=== PATIENT | male | born 1975 | race Caucasian/White ===

== ENCOUNTER 2022-04-05 06:28 | Inpatient (IN) | payer BC ==
[2022-03-27 16:46] LABS: BASOPHILS % (AUTO) 0.9 % (0-1); EOSINOPHILS % (AUTO) 0.9 % (0-6); LYMPHOCYTES # (AUTO) 1.4 X10'3 (1.1-4.8); LYMPHOCYTES % (AUTO) 25.3 % (21-51); MEAN CORPUSCULAR HEMOGLOBIN 31.1 PG (27.0-31.0); MEAN CORPUSCULAR VOLUME 91.3 FL (78-98); MEAN PLATELET VOLUME 7.8 FL (7.4-10.4); MONOCYTES # (AUTO) 0.5 X10'3 (0-0.9); NEUTROPHILS # (AUTO) 3.4 X10'3 (1.8-7.7); NEUTROPHILS % (AUTO) 62.9 % (42-75); PRE OP HEMATOCRIT 42.1 % (42.0-52.0); PRE OP HEMOGLOBIN 14.3 g/dL (14.0-17.9); PRE OP PLATELET COUNT 252 X10'3 (140-440); RED BLOOD COUNT 4.61 X10'6 (4.70-6.10); RED CELL DISTRIBUTION WIDTH 12.8 % (11.5-14.5)
[2022-03-27 16:54] LABS: ALBUMIN 4.2 G/DL (3.4-5.0); ALBUMIN/GLOBULIN RATIO 1.4 (1.1-1.5); ALKALINE PHOSPHATASE 48 IU/L (46-116); BLOOD UREA NITROGEN 20 MG/DL (7-18); BUN/CREATININE RATIO 21.1 (5.4-32.0); CALCIUM 8.8 MG/DL (8.5-10.1); CHLORIDE 106 MMOL/L (99-107); CREATININE 0.95 MG/DL (0.60-1.10); PRE OP ALT 23 U/L (30-65); PRE OP ANION GAP 2 (8-16); PRE OP AST 24 U/L (10-37); PRE OP BILIRUB, TOTAL 0.6 MG/DL (0.0-1.0); PRE OP GLUCOSE 94 MG/DL (70-104); PRE OP POTASSIUM 3.9 MMOL/L (3.4-5.1); PRE OP SODIUM 139 MMOL/L (135-145); TOTAL CARBON DIOXIDE 30.8 MMOL/L (24-32); TOTAL PROTEIN 7.1 G/DL (6.4-8.2); eGFR 85 ML/MIN
[2022-04-05] VITALS (17 sets, daily range): BP systolic 107–137; BP diastolic 61–78
[~2022-04-05] VITALS: Ht 182.9 cm; Wt 79.1 kg
[~2022-04-05 06:28] MED LIST: TEST200V33 IM; famotidine 20mg tablet PO ONE; ringers solution, lacted 1,000 ML IV SCH
[2022-04-05] MEDS ORDERED: LIDOcaine 1% 30ml preserv. free vial ONE ×2 (07:08→09:36)
[2022-04-05] MEDS ORDERED: BUPIVAcaine/PF 2.5mg/ml (0.25%) 10ml vial ONE ×3 (07:08→09:36)
[2022-04-05] MEDS ORDERED: fentaNYL /PF 50mcg/ml 5ml ampule ONE (09:01)
[2022-04-05] MEDS ORDERED: propofol inj 20 ML IV ONE (09:01)
[2022-04-05] MEDS ORDERED: midazolam 1 mg/ML 2ml injection ONE (09:01)
[2022-04-05] MEDS ORDERED: rocuronium 10mg/ml inj IV ONE (09:03)
[2022-04-05] MEDS ORDERED: sevoflurane 250ml liquid IH ONE (09:06)
[2022-04-05] MEDS ORDERED: proCHLORperazine 10 MG/2 ml inj IV PRN (09:20)
[2022-04-05] MEDS ORDERED: meperidine/PF 25mg/ml syringe IV PRN ×3 (09:20)
[2022-04-05] MEDS ORDERED: ondansetron/PF 4mg/2ml inj IV PRN ×2 (09:20→12:05)
[2022-04-05] MEDS ORDERED: morphine 4 MG/ML inj SYRINge IV PRN (09:20)
[2022-04-05] MEDS ORDERED: ringers solution, lacted 1,000 ML IV SCH (09:20)
[2022-04-05] MEDS ORDERED: morphine 2 MG/ML inj. syringe IV PRN (09:20)
[2022-04-05] MEDS ORDERED: dexamethasone sod phosphate 4mg/ml inj. ONE (09:25)
[2022-04-05] MEDS ORDERED: BUPIVACAINE liposomal/PF 13.3 MG/ML vial IM ONE (09:50)
[2022-04-05] MEDS ORDERED: INDOCYANINE GREEN 25 MG/10 ML VIAL IV ONE (10:00)
[2022-04-05] MEDS ORDERED: ondansetron/PF 4mg/2ml inj ONE (11:01)
--- NOTE | 2022-04-05 11:45 | NUR ---
Received from OR via HOSPITAL BED, accompanied by Anesthesiologist DR. JO and report given by Anesthesiolgist. 20G PIV TO RIGHT HAND WITH LR RUNNING AT 100ML/HR. VSS. DRESSING SITES REVIEWED WITH NURSE VELA AND FOUND TO BE CDI. PATIENT DENIES PAIN DENIES NAUSEA, ON RA.
[2022-04-05] MEDS ORDERED: naloxone 0.4 mg/ml inj IV PRN (12:05)
[2022-04-05] MEDS ORDERED: HYDROcodone/acetaminophen 5mg/325mg tablet PO PRN (12:05)
[2022-04-05] MEDS ORDERED: HYDROcodone/acetaminophen 10/325mg tab PO PRN (12:05)
--- NOTE | 2022-04-05 12:30 | NUR ---
ATTEMPTED TO CONTACT NURSE FOR REPORT. UNABLE TO REACH.
--- NOTE | 2022-04-05 13:00 | NUR ---
PATIENT REPORT CALLED TO EX CHEFTALIA DUE TO NATALIA BEING ON LUNCH. PATIENT VSS. DENIES PAIN. DRESSINGS CDI. PARENTS RETRIEVED FROM WAITING ROOM AND TRANSPORTED WITH PATIENT AND ALL BELONGINGS TO ROOM 8856W.
[2022-04-05] MEDS: acetaminophen 325mg tablet PO SCH ×2 (14:09→20:51)
[2022-04-05] MEDS: ketorolac tromethamine 15mg/ml inj. IV SCH (15:52)
[2022-04-05] MEDS ORDERED: ketorolac trometh. 30mg/ml inj. IM SCH (16:00)
[2022-04-05] MEDS: potassium CL 20mEq in D5-1/2NS 1,000 ML IV SCH ×2 (18:11→20:05)
--- NOTE | 2022-04-05 18:20 | NUR ---
Patient in room ORTHO 4015. I have received report from HOMAR Cano and had the opportunity to ask questions and assume patient care.
--- NOTE | 2022-04-05 18:24 | NUR ---
Dr Martinez aware of patients temp, patient has IS and using cooling measures and patient is getting scheduled tylenol.
--- NOTE | 2022-04-05 18:25 | NUR ---
Problems reprioritized. Patient report given, questions answered & plan of care reviewed with Angélica GRAF.
[2022-04-06] MEDS: ketorolac tromethamine 15mg/ml inj. IV SCH ×2 (00:11→08:51)
[2022-04-06 02:00] VITALS: BP 115/73
[2022-04-06] MEDS: potassium CL 20mEq in D5-1/2NS 1,000 ML IV SCH ×2 (02:24→12:05)
[2022-04-06] MEDS: acetaminophen 325mg tablet PO SCH ×2 (02:25→08:51)
[2022-04-06] MEDS ORDERED: ceFOXitin 2GM-NS 100mL ADDvant 100 ML IV ONE (05:30)
[2022-04-06 06:45] LABS: BASOPHILS % (AUTO) 0.4 % (0-1); EOSINOPHILS % (AUTO) 0.1 % (0-6); HEMATOCRIT 41.8 % (42.0-52.0); LYMPHOCYTES # (AUTO) 1.2 X10'3 (1.1-4.8); LYMPHOCYTES % (AUTO) 12.2 % (21-51); MEAN CORPUSCULAR HEMOGLOBIN 31.1 PG (27.0-31.0); MEAN CORPUSCULAR HGB CONC 33.6 g/dL (33.0-36.5); MEAN CORPUSCULAR VOLUME 92.6 FL (78-98); MEAN PLATELET VOLUME 7.6 FL (7.4-10.4); MONOCYTES # (AUTO) 1.2 X10'3 (0-0.9); MONOCYTES % (AUTO) 12.1 % (2-12); NEUTROPHILS # (AUTO) 7.4 X10'3 (1.8-7.7); NEUTROPHILS % (AUTO) 75.2 % (42-75); PLATELET COUNT 240 X10'3 (140-440); RED BLOOD COUNT 4.51 X10'6 (4.70-6.10); RED CELL DISTRIBUTION WIDTH 13.1 % (11.5-14.5); WHITE BLOOD COUNT 9.8 X10'3 (4.5-11.0)
--- NOTE | 2022-04-06 06:48 | NUR ---
Problems reprioritized. Patient report given, questions answered & plan of care reviewed with HOMAR Barger.
[2022-04-06 06:52] LABS: ALBUMIN 3.2 G/DL (3.4-5.0); ANION GAP 5 (8-16); BLOOD UREA NITROGEN 15 MG/DL (7-18); BUN/CREATININE RATIO 15.2 (5.4-32.0); CALCIUM 8.1 MG/DL (8.5-10.1); CHLORIDE 105 MMOL/L (99-107); CREATININE 0.99 MG/DL (0.60-1.10); GLUCOSE 108 MG/DL (70-104); POTASSIUM 4.2 MMOL/L (3.5-5.1); SODIUM 139 MMOL/L (135-145); TOTAL CARBON DIOXIDE 28.9 MMOL/L (24-32); eGFR 81 ML/MIN
[2022-04-06] MEDS ORDERED: enoxaparin 40mg/0.4ml syringe SQ SCH (08:00)
[2022-04-06 11:14] VITALS: BP 115/64
[2022-04-06] MEDS ORDERED: HYDR-3965 PO (13:00)
--- NOTE | 2022-04-06 13:50 | NUR ---
Patient stable and appropriate for discharge home. IV removed, all belongings taken from room. New RX e-scripted by MD. All discharge instructions and education given and reviewed with patient, all questions answered.
== END 2022-04-06 13:40 | disposition home or self-care (01) | DRG 331 ==
LOC: PAS IN 06:28 → ORTHO 4S 13:10
PROVIDERS: ADMIT Surgery; ATTEND Surgery
PROC: 0JBM0ZZ Excision of Left Upper Leg Subcutaneous Tissue and Fascia, Open Approach (ICD-10-PCS; 2022-04-05)
PROC: 8E0W4CZ Robotic Assisted Procedure of Trunk Region, Percutaneous Endoscopic Approach (ICD-10-PCS; 2022-04-05)
PROC: 0DTF4ZZ Resection of Right Large Intestine, Percutaneous Endoscopic Approach (ICD-10-PCS; principal; 2022-04-05 09:06)
DX: D49.0 Neoplasm of unspecified behavior of digestive system (principal); D17.24 Benign lipomatous neoplasm of skin and subcutaneous tissue of left leg; Z79.899 Other long term (current) drug therapy
CPT/HCPCS: Z7506; Z7508; 36415; 80048; 80053; 82948; 85025; 86885; 86900; 86901; 87081; 93005; A4215; A4615; A4618; C1758; C9290; G0378; J0694; J1100; J1885; J2250; J2405; J2704; J3010; J3480; J3490; J7120